=== PATIENT | male | born 1990 | race Caucasian/White ===

== ENCOUNTER 2020-12-16 04:25 | Day surgery (SDC) | payer OTHER ==
[2020-12-14 11:49] VITALS: BMI 25.0
[2020-12-16] MEDS ORDERED: MIDAZOLAM HCL 2 MG/2 ML SINGLE DOSE VIAL ONE (07:10)
[2020-12-16] MEDS ORDERED: PROPOFOL 20 ML ONE ×6 (07:11→08:22)
[2020-12-16] MEDS ORDERED: ROCURONIUM BROMIDE 50 MG/5 ML SYRINGE ONE ×2 (07:17→08:14)
[2020-12-16] MEDS ORDERED: SUCCINYLCHOLINE CHLORIDE 200 MG/10 ML SYRINGE ONE (07:18)
[2020-12-16] MEDS ORDERED: EPHEDRINE SULFATE/0.9% NACL/PF 50 MG/10 ML SYRINGE NR ONE (07:18)
[2020-12-16] MEDS ORDERED: GLYCOPYRROLATE 0.2 MG/1 ML VIAL ONE ×2 (07:19→08:56)
[2020-12-16] MEDS ORDERED: DEXAMETHASONE SOD PHOSPHATE 4 MG/1 ML VIAL ONE ×2 (07:19→08:56)
[2020-12-16] MEDS ORDERED: LIDOCAINE 1%/EPI 1:100000 (50 ML MULTI DOSE VIAL) ONE (07:21)
[2020-12-16] MEDS ORDERED: COCAINE HCL 4% TOPICAL SOLUTION 4 ML BOTTLE TP ONE ×2 (07:33→08:16)
[2020-12-16] MEDS ORDERED: NEOSTIGMINE METHYLSULFATE 0.5 MG/ML - 10 ML MDV ONE (08:06)
[2020-12-16] MEDS ORDERED: LIDOCAINE 1%/EPI 1:100000 (50 ML MULTI DOSE VIAL) INF ONE (08:07)
[2020-12-16] MEDS ORDERED: oxyCODONE HCL 5 MG TABLET PO PRN ×2 (09:54)
[2020-12-16] MEDS ORDERED: ONDANSETRON 4 MG/2 ML VIAL IVPUSH PRN (09:54)
[2020-12-16] MEDS ORDERED: ACETAMINOPHEN 1000 MG/100 ML VIAL (NON FORMULARY) IVPB ONE (09:55)
[2020-12-16] MEDS ORDERED: LACTATED RINGERS SOLUTION 1,000 ML IV SCH (10:00)
[2020-12-16 14:01] VITALS: BP 121/76; PULSE 63; TEMP 97.8
== END 2020-12-16 13:00 | disposition home or self-care (01) ==
LOC: JASU-SURG 04:25
PROVIDERS: ATTEND Otolaryngology
PROC: 09TL8ZZ Resection of Nasal Turbinate, Via Natural or Artificial Opening Endoscopic (ICD-10-PCS; 2020-12-16)
PROC: 09U Ear, Nose, Sinus, Supplement (ICD-10-PCS; 2020-12-16)
PROC: 09BM8ZZ Excision of Nasal Septum, Via Natural or Artificial Opening Endoscopic (ICD-10-PCS; principal; 2020-12-16 07:30)
DX: J34.2 Deviated nasal septum (principal); J34.3 Hypertrophy of nasal turbinates; M95.0 Acquired deformity of nose
CPT/HCPCS: 30140; 30468; 30520; C9727; L8699; 88302-TC; 88311-TC; 94760; J0131